=== PATIENT | male | born 1990 | race American Indian/Alaskan Native ===

== ENCOUNTER 2020-10-31 01:54 | Emergency (ER) | payer SELFPAY ==
[2020-10-31 02:28] VITALS: BP 133/48
--- NOTE | 2020-10-31 03:17 | XRay Report ---
Right leg/5 views INDICATION: right tib/fib pain. COMPARISON: None. IMPRESSION: Vertically split fracture of the lateral tibial plateau without significant depression a nd with overlying soft tissue swelling. No significant DJD. Signer Name: Nic Marsh MD Signed: 10/31/2020 3:13 AM Workstation Name: [id number]
[2020-10-31] MEDS ORDERED: HYDROcodone/ACETAMINOPHEN 5-325 MG TAB PO ONE (03:19)
--- NOTE | 2020-10-31 03:24 | Emergency Department Report ---
ED Lower Extremity HPI - General Chief Complaint: Extremity Injury, Lower Stated Complaint: LEG PAIN Time Seen by Provider: 10/31/20 03:18 Source: patient, family Mode of arrival: Wheelchair Limitations: No Limitations - History of Present Illness Initial Comments: Patient is a 30-year-old -[place] male who presents for knee pain radiating to right lateral tib-fib pain. Patient states he used his leg to prevent a box from falling in his garage causing it to twist , now unable to bear weight on right lower extremity due to 7/10 pain and aching. Pain described as shooting and sharp. Patient arrived to ED via POV. And family member. MD Complaint: knee injury, leg injury, ankle injury Injury: Leg: Right, Knee: Right, Ankle: Right Type of Injury: hyperextension Place: home Severity: moderate Severity scale (0 -10): 7 Worsens With: weight bearing, movement, palpation Context: other (twisting ) Associated Symptoms: swelling, tingling, unable to bear weight - Related Data Previous Rx's Medication Instructions Recorded Last Taken Type Acetaminophen/Codeine [Tylenol 1 tab PO Q6H PRN 3 Days #12 tab 04/07/19 Unknown Rx /Codeine # 3 tab] Baclofen 20 mg PO Q8H PRN #24 tablet 04/07/19 Unknown Rx Naproxen 500 mg PO Q12H PRN #20 tablet 04/07/19 Unknown Rx HYDROcodone/APAP 5-325 [Pine 1 each PO Q6HR PRN #12 tablet 10/31/20 Unknown Rx 5-325 mg TAB] Allergies Allergy/AdvReac Type Severity Reaction Status Date / Time No Known Allergies Allergy Unverified 04/07/19 17:07 ED Review of Systems ROS: Stated complaint: LEG PAIN Other details as noted in HPI Constitutional: denies: chills, fever Eyes: denies: eye pain, eye discharge, vision change ENT: denies: ear pain, throat pain Respiratory: denies: cough, shortness of breath, wheezing Cardiovascular: denies: chest pain, palpitations Endocrine: no symptoms reported Gastrointestinal: denies: abdominal pain, nausea, diarrhea Genitourinary: denies: urgency, dysuria Musculoskeletal: joint swelling (right knee , right ankle swelling ). 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 - Surgical History Past Surgical History?: Yes Additional Surgical History: Left wrist - Social History Smoking Status: Never Smoker Substance Use Type: Marijuana - Medications Home Medications: Home Medications Medication Instructions Recorded Confirmed Last Taken Type Acetaminophen/Codeine [Tylenol 1 tab PO Q6H PRN 3 Days #12 tab 04/07/19 Unknown Rx /Codeine # 3 tab] Baclofen 20 mg PO Q8H PRN #24 tablet 04/07/19 Unknown Rx Naproxen 500 mg PO Q12H PRN #20 tablet 04/07/19 Unknown Rx HYDROcodone/APAP 5-325 [Pine 1 each PO Q6HR PRN #12 tablet 10/31/20 Unknown Rx 5-325 mg TAB] ED Physical Exam - General Limitations: No Limitations General appearance: alert, in no apparent distress - Head Head exam: Present: atraumatic, normocephalic - Eye Eye exam: Present: normal appearance, EOMI Pupils: Present: normal accommodation - ENT ENT exam: Present: mucous membranes moist - Neck Neck exam: Present: normal inspection, full ROM. Absent: tenderness - Respiratory Respiratory exam: Present: normal lung sounds bilaterally. Absent: respiratory distress, wheezes, stridor - Cardiovascular Cardiovascular Exam: Present: regular rate, normal rhythm, normal heart sounds. Absent: systolic murmur, diastolic murmur, rubs, gallop - GI/Abdominal GI/Abdominal exam: Present: soft, normal bowel sounds. Absent: distended, tenderness - Rectal Rectal exam: Present: deferred - Extremities Exam Extremities exam: Present: full ROM, tenderness - Expanded Lower Extremity Exam Right Knee exam: Present: tenderness, swelling, pain w/ pronation/supination, pain/laxity with valgus, pain/laxity with varus, full knee extension. Absent: abrasion, laceration, ecchymosis, deformity, crepidus, dislocation, erythema, effusion, posterior draw sign Lower Leg exam: Present: tenderness. Absent: swelling, abrasion, laceration, ecchymosis, deformity, crepidus, dislocation, erythema, palpable cord, Vianca's sign Ankle exam: Present: full ROM, tenderness, swelling (right lateral ankle ). Absent: ecchymosis, deformity, crepidus, erythema, anterior draw sign Foot/Toe exam: Present: full ROM. Absent: tenderness, swelling Neuro vascular tendon exam: Absent: pulse deficit, motor deficit, sensory defici t, tendon deficit Gait: Positive: unable to bear weight - Back Exam Back exam: Present: normal inspection, full ROM. Absent: vertebral tenderness - Neurological Exam Neurological exam: Present: alert, oriented X3, CN II-XII intact, abnormal gait, reflexes normal. Absent: motor sensory deficit - Expanded Neurological Exam Expanded Patient oriented to: Present: person, place, time Sensory exam: Lower Extremity Light Touch: Normal, Lower Extremity Temperature: Normal Motor strength exam: RLE: 5, LLE: 5 DTR: ankle (R): 2+, ankle (L): 2+ Best Eye Response ([place]): (4) open spontaneously Best Motor Response ([place]): (6) obeys commands Best Verbal Response ([place]): (5) oriented [place] Total: 15 - Psychiatric Psychiatric exam: Present: normal affect, normal mood - Skin Skin exam: Present: warm, dry, intact, normal color. Absent: rash ED Course Vital Signs 10/31/20 02:08 Temperature 98.7 F Pulse Rate 94 H Respiratory 18 Rate Blood Pressure 133/48 O2 Sat by Pulse 96 Oximetry ED Lower Extremity MDM - Radiology Data Radiology results: report reviewed, image reviewed [facility] [address] [place] [address] XRay Report Signed Patient: BHARATI GUTIÉRREZ MR#: [id number] : 1990 Acct:[id number] Age/Sex: 30 / M ADM Date: 10/31/20 Loc: ED Attending Dr: Ordering Physician: Michelle Daily MD Date of Service: 10/31/20 Procedure(s): XR tibia fibula 2V RT Accession Number(s): [id number] cc: Michelle Daily MD Fluoro Time In Minutes: Right leg/5 views INDICATION: right tib/fib pain. COMPARISON: None. IMPRESSION: Vertically split fracture of the lateral tibial plateau without significant depression and with overlying soft tissue swelling. No significant DJD. Signer Name: Nic Marsh MD Signed: 10/31/2020 3:13 AM Workstation Name: [id number] Transcribed By: JW Dictated By: Nic Marsh MD Electronically Authenticated By: Nic Marsh MD Signed Date/Time: 10/31/20312 DD/ 1 TD/TT: - Medical Decision Making X-ray result right vertical tibial plateau fracture, right stable avulsion, fractures are closed , distal pulses are intact , pain is improved with medicati on given in ED. Plan [place] short leg knee immobilizer crutches follow-up with orthopedics tomorrow, patient verbalizes agreement and understanding with discharge plan. Patient DC'd home in stable condition at this time Splint check is complete, spacing is appropriate via two finger insertion, distal pulses intact. 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 Critical care attestation.: If time is entered above; I have spent that time in minutes in the direct care of this critically ill patient, excluding procedure time. ED Disposition Clinical Impression: Closed fracture of lateral portion of right tibial plateau Qualifiers: Encounter type: initial encounter Qualified Code(s): S82.121A - Displaced fracture of lateral condyle of right tibia, initial encounter for closed fracture Disposition: DC-01 TO HOME OR SELFCARE Is pt being admited?: No Does the pt Need Aspirin: No Condition: Stable Instructions: Tibial Plateau Fracture Rehab-[facility] Prescriptions: HYDROcodone/APAP 5-325 [Pine 5-325 mg TAB] 1 each PO Q6HR PRN #12 tablet PRN Reason: Pain Referrals: MIGDALIA BURCIAGA MD [Staff Physician] - 3-5 Days Forms: Work/School Release Form(ED) Time of Disposition: 04:03
== END 2020-10-31 04:34 | disposition home or self-care (01) ==
LOC: ED 01:54
DX: S82.121A Displaced fracture of lateral condyle of right tibia, initial encounter for closed fracture (principal); F12.90 Cannabis use, unspecified, uncomplicated; Z79.899 Other long term (current) drug therapy; Z98.890 Other specified postprocedural states; X58.XXXA Exposure to other specified factors, initial encounter; Y93.89 Activity, other specified; Y92.009 Unspecified place in unspecified non-institutional (private) residence as the place of occurrence of the external cause; Y99.8 Other external cause status